=== PATIENT | female | born 1990 | race Caucasian/White ===

== ENCOUNTER 2017-03-17 23:28 | Emergency (ER) | payer MEDICAID ==
[2017-03-17] MEDS ORDERED: Sodium Chloride 0.9% 1,000 ML IV ONE (23:49)
[2017-03-18 00:07] LABS: ALB/GLOB RATIO 1.3 (1.0-2.1); ALBUMIN 4.1 g/dL (3.5-5.0); CALCIUM 8.5 mg/dl (8.6-10.4); GFR AFRICAN-AMERICAN > 60; GFR NON-AFRICAN AMERICAN > 60
[2017-03-18 00:08] LABS: ALT/SGPT 15 U/L (9-52); AST/SGOT 16 U/L (14-36); BLOOD UREA NITROGEN 15 mg/dL (7-17)
[2017-03-18] MEDS ORDERED: Sodium Chloride 0.9% 1,000 ML ONE (00:09)
[2017-03-18 00:13] LABS: HCG,QUALITATIVE URINE POSITIVE (NEGATIVE); SQUAMOUS EPITHIAL 2 /hpf (0-5); URINE CLARITY Turbid (Clear); URINE COLOR YELLOW (YELLOW); URINE GLUCOSE (UA) NEGATIVE (Normal)
[2017-03-18 00:14] LABS: URINE BILIRUBIN SMALL (NEGATIVE); URINE BLOOD LARGE (NEGATIVE); URINE LEUKOCYTE ESTERASE NEGATIVE Leu/uL (Negative); URINE NITRATE NEGATIVE (NEGATIVE); URINE PROTEIN TRACE mg/dL (NEGATIVE); URINE UROBILINOGEN 0.2 mg/dL (0.2-1.0)
[2017-03-18 00:15] LABS: PROTHROMBIN TIME 11.7 SECONDS (9.7-12.2)
--- NOTE | 2017-03-18 01:32 | C.PDOC ---
History Of Present Illness 26 year old female presents to the ER with a complaint of a sudden onset of vaginal bleeding that began this evening; she describes the flow as heavy and bright red. Patient is , is s/p on 02/10/17 (first trimester). She reports a small amount of dark bleeding afterwards but no other symptoms until now. Patient denies abdominal/pelvic pain, fever, dysuria, nausea/ vomiting. Time Seen by Provider: 03/17/17 23:29 Chief Complaint (Nursing): Female Genitourinary History Per: Patient History/Exam Limitations: no limitations Current Symptoms Are (Timing): Still Present Severity: Moderate Alleviating Factors: None Abnormal Vaginal Bleeding: Yes Past Medical History Reviewed: Historical Data, Nursing Documentation, Vital Signs Vital Signs: Last Vital Signs Temp 97.7 F 03/18/17 03:59 Pulse 70 03/18/17 03:59 Resp 18 03/18/17 03:59 BP 122/80 03/18/17 03:59 Pulse Ox 97 03/18/17 03:59 - Medical History PMH: Asthma Family History: States: No Known Family Hx - Social History Hx Alcohol Use: No Hx Substance Use: No - Immunization History Hx Tetanus Toxoid Vaccination: No Hx Influenza Vaccination: No Hx Pneumococcal Vaccination: No Review Of Systems Except As Marked, All Systems Reviewed And Found Negative. Constitutional: Negative for: Fever Respiratory: Negative for: Shortness of Breath Gastrointestinal: Negative for: Nausea, Vomiting, Abdominal Pain, Diarrhea Genitourinary: Positive for: Vaginal Bleeding. Negative for: Dysuria Physical Exam - Physical Exam Appears: Well, Non-toxic, Other (Anxious appearing) Skin: Normal Color, Warm, Dry Eye(s): bilateral: Normal Inspection Oral Mucosa: Moist Cardiovascular: Rhythm Regular Respiratory: Normal Breath Sounds, No Rales, No Rhonchi, No Wheezing Gastrointestinal/Abdominal: Bowel Sounds, Soft, Tenderness (Mild suprapubic TTP , (-) McBurney's, (-) Rovsig's), No Guarding, No Rebound Back: No CVA Tenderness Neurological/Psych: Oriented x3 ED Course And Treatment - Laboratory Results Result Diagrams: 03/17/17 23:53 O2 Sat by Pulse Oximetry: 100 (Room air) Pulse Ox Interpretation: Normal Progress Note: UA and Upreg ordered, (+) Upreg. Beta quant sent and elevated. Blood work, transvaginal US ordered. Patient given IV NS bolus. Reevaluation Time: 04:00 Reassessment Condition: Improved (Patient reassessed, is resting comfortably, in no current pain/distress. Bleeding is currently minimal. Results of ultrasound and blood work explained to patient, and she understands she will need termination of , was instructed to return to same clinic she went to previously. 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 Cooley, suspects patient has blighted ovum/anembryonic gestation - will need done as outpatient. Disposition Counseled Patient/Family Regarding: Studies Performed, Diagnosis, Need For Followup - Disposition Referrals: [facility] [Outside] Disposition: HOME/ ROUTINE Disposition Time: 04:00 Condition: STABLE Instructions: First Trimester Vaginal Bleed (ED) Forms: General Discharge Instructions, [facility] (Armenian), Work Excuse Print Language: VINCENTIAN - Clinical Impression Clinical Impression: Blighted ovum, Vaginal bleeding affecting early - Scribe Statement The provider has reviewed the documentation as recorded by the Scribe Doug Viramontes All medical record entries made by the Scribe were at my direction and personally dictated by me. I have reviewed the chart and agree that the record accurately reflects my personal performance of the history, physical exam, medical decision making, and the department course for this patient. I have also personally directed, reviewed, and agree with the discharge instructions and disposition.
--- NOTE | 2017-03-18 03:34 | US ---
EXAM: US First Trimester, Transabdominal CLINICAL HISTORY: 26 years old, female; Signs and symptoms; Lmp or gestational age (in weeks): Top on 02/10/17; Other: Vag bleeding; ; Additional info: Elevated beta, S/P feb 10 TECHNIQUE: Real-time transabdominal obstetrical ultrasound of the maternal pelvis and a first trimester with image documentation. COMPARISON: No relevant prior studies available. FINDINGS: Gestation: 0.7 x 0.6 x 0.7 cm saclike structure with septations about endometrium. No yolk sac. No pole. Uterus/cervix: 2.0 x 2.2 x 2.6 cm amorphous hypoechoic structure with partial but extensive vascularity surrounding saclike structure. Closed cervix. Ovaries: Normal ovaries. No adnexal masses. Free fluid: No significant free fluid. IMPRESSION: 1. Sac without pole or yolk sac. DDX: Early IUP, blighted ovum, ectopic (with pseudogestational sac). Followup is recommended. 2. Amorphous hypoechoic structure with partial but extensive vascularity surrounding saclike structure, uncertain etiology. Subchorionic hemorrhage and/or vascular malformation not excluded. Clinical correlation is needed. EXAM: US , Transvaginal CLINICAL HISTORY: 26 years old, female; Signs and symptoms; Lmp or gestational age (in weeks): Top on 02/10/17; Other: Vag bleeding; ; Additional info: Elevated beta, S/P feb 10 TECHNIQUE: Real-time transvaginal obstetrical ultrasound of the maternal pelvis and a first trimester with image documentation. Transvaginal imaging was used for better evaluation of the fetus and adnexa. COMPARISON: No relevant prior studies available. FINDINGS: Gestation: 0.7 x 0.6 x 0.7 cm saclike structure with septations about endometrium. No yolk sac. No pole. Uterus/cervix: 2.0 x 2.2 x 2.6 cm amorphous hypoechoic structure with partial but extensive vascularity surrounding saclike structure. Closed cervix. Ovaries: Normal ovaries. No adnexal masses. Free fluid: No significant free fluid.
[2017-03-18 04:00] VITALS: BP 122/80; PULSE 70; RESP 18; TEMP 97.7
[2017-03-31 08:22] VITALS: O2SAT 100
== END 2017-03-18 04:07 | disposition home or self-care (01) ==
LOC: C.ER 23:28
DX: O02.0 Blighted ovum and nonhydatidiform mole (principal)
CPT/HCPCS: 76805; 76817; 80053; 81001; 84702; 84703; 85610; 85730; 96360; 99285; J7040